=== PATIENT | female | born 1960 | race Caucasian/White ===

== ENCOUNTER 2017-12-05 16:52 | Emergency (ER) | payer OTHER ==
[~2017-12-05] VITALS: Ht 157.5 cm; Wt 114.0 kg
[~2017-12-05 16:52] MED LIST: (None)20 M1 PO; ALBU90OI INH; AMIT25 PO; CYCL10 PO; DIVA250ER PO; DOXY100 PO; FOLI1 PO; GABA100; GABA300 PO; HYDACE5 PO; HYDCOR1TC TOP; IBUP400 PO; LEVCAR100L PO; LORA.5; METO50 PO; NAPR500 PO; PANT20 PO; PRED20 PO; PROCODE120 PO; QUET25; QUET25 PO; Seroquel Xr300 MG PO; TRAACE PO; TRAM50 PO; Ultram50 MG PO
[2017-12-05] MEDS ORDERED: Prednisone20 MG PO (18:29)
[2017-12-05] MEDS ORDERED: DICL75ER PO (18:29)
[2017-12-05] MEDS ORDERED: Vibramycin100 MG PO (18:29)
[2017-12-05] MEDS ORDERED: ALBU90OI INH (18:29)
== END 2017-12-05 18:36 | disposition home or self-care (01) ==
LOC: ER 16:52
DX: J44.1 Chronic obstructive pulmonary disease with (acute) exacerbation (principal); T85.698A Other mechanical complication of other specified internal prosthetic devices, implants and grafts, initial encounter; Z79.899 Other long term (current) drug therapy; F17.210 Nicotine dependence, cigarettes, uncomplicated
CPT/HCPCS: 71046; 73522; 73562-LT; 73562-RT; 96372; 99284; J1885; J3301

== ENCOUNTER 2018-08-22 03:13 | Emergency (ER) | payer OTHER ==
[~2018-08-22] VITALS: Ht 157.5 cm; Wt 124.3 kg
[~2018-08-22 03:13] MED LIST changes: +DICL75ER PO; +Prednisone20 MG PO; +Vibramycin100 MG PO; +Zofran Odt4 MG SL
[2018-08-22] MEDS ORDERED: PROZAC20 MG PO (03:25)
[2018-08-22] MEDS ORDERED: MELO7.5 PO (03:26)
[2018-08-22 03:38] LABS: BASOPHILS ABSOLUTE AUTO 0.04 K/mm3 (0.00-0.23); BASOPHILS PERCENT AUTO 0 % (0-2); EOSINOPHILS ABSOLUTE AUTO 0.27 K/mm3 (0.00-0.68); EOSINOPHILS PERCENT AUTO 2 % (0-6); Hematocrit 38.5 % (33.0-51.0); Hemoglobin 12.7 g/dL (11.5-16.0); IMMATURE GRAN ABSOLUTE AUTO 0.06 K/mm3 (0.00-0.10); IMMATURE GRAN PERCENT AUTO 1 % (0-1); LYMPHOCYTES ABSOLUTE AUTO 4.56 K/mm3 (0.84-5.20); LYMPHOCYTES PERCENT AUTO 40 % (21-46); MONOCYTES ABSOLUTE AUTO 0.56 K/mm3 (0.16-1.47); MONOCYTES PERCENT AUTO 5 % (4-13); Mean Corpuscular HGB 33.1 pg (26.0-34.0); Mean Corpuscular Volume 100 fL (80-100); Mean Platelet Volume 8.7 fL (9.1-12.4); NEUTROPHILS ABSOLUTE AUTO 6.06 K/mm3 (1.96-9.15); NEUTROPHILS PERCENT AUTO 53 % (41-73); Platelet Count 269 K/mm3 (150-400); RDW Coefficient Variation 14.1 % (11.7-14.2); RDW Standard Deviation 52.1 fL (35.1-46.3); Red Blood Cell Count 3.84 M/mm3 (3.80-5.20); White Blood Cell Count 11.55 K/mm3 (4.00-11.30)
[2018-08-22 03:56] LABS: Alanine Aminotransfer (ALT/SGP 13 U/L (12-78); Albumin, Blood 3.1 g/dL (3.4-5.0); Albumin/Globulin Ratio 0.8 (0.8-1.8); Alk Phos 78 U/L (50-136); Anion Gap 8 mmol/L (6-16); Aspartate Aminotrans (AST/SGOT 27 U/L (12-37); Bilirubin, Total 0.2 mg/dL (0.1-1.0); Blood Urea Nitrogen 13 mg/dL (8-24); Bun/Creatinine Ratio 21.8 (12.0-20.0); CO2, Blood 30 mmol/L (21-32); Chloride, Blood 92 mmol/L (98-108); Globulin, Blood 3.9 g/dL (2.2-4.0); Glomerular Filtration Rate >60 (60-); Glucose, Blood 123 mg/dL (70-99); Potassium, Blood 4.4 mmol/L (3.5-5.5); Sodium, Blood 130 mmol/L (136-145)
== END 2018-08-22 04:55 | disposition home or self-care (01) ==
LOC: ER 03:13
PROVIDERS: Emergency Medicine
DX: R10.9 Unspecified abdominal pain (principal); F17.210 Nicotine dependence, cigarettes, uncomplicated
CPT/HCPCS: 36415; 80053; 83690; 85025; 96361; 96374; 99284-25; J1885; J7030

== ENCOUNTER 2019-11-20 15:34 | Inpatient (IN) | payer OTHER ==
[~2019-11-20] VITALS: Ht 157.5 cm; Wt 114.2 kg
[~2019-11-20 15:34] MED LIST changes: -DIVA250ER PO; -FOLI1 PO; -METO50 PO; -PANT20 PO; -QUET25 PO
[2019-11-20 16:07] LABS: BASOPHILS ABSOLUTE AUTO 0.05 K/mm3 (0.00-0.23); BASOPHILS PERCENT AUTO 0 % (0-2); EOSINOPHILS ABSOLUTE AUTO 0.16 K/mm3 (0.00-0.68); EOSINOPHILS PERCENT AUTO 1 % (0-6); Hematocrit 41.8 % (33.0-51.0); Hemoglobin 13.7 g/dL (11.5-16.0); IMMATURE GRAN ABSOLUTE AUTO 0.07 K/mm3 (0.00-0.10); IMMATURE GRAN PERCENT AUTO 1 % (0-1); LYMPHOCYTES ABSOLUTE AUTO 3.14 K/mm3 (0.84-5.20); LYMPHOCYTES PERCENT AUTO 23 % (21-46); MONOCYTES PERCENT AUTO 5 % (4-13); Mean Corpuscular HGB 32.2 pg (26.0-34.0); Mean Corpuscular HGB Conc 32.8 g/dL (31.5-36.5); Mean Corpuscular Volume 98 fL (80-100); Mean Platelet Volume 8.6 fL (9.1-12.4); NEUTROPHILS ABSOLUTE AUTO 9.51 K/mm3 (1.96-9.15); NEUTROPHILS PERCENT AUTO 70 % (41-73); Platelet Count 324 K/mm3 (150-400); RDW Coefficient Variation 13.2 % (11.7-14.2); RDW Standard Deviation 47.5 fL (35.1-46.3); Red Blood Cell Count 4.26 M/mm3 (3.80-5.20); White Blood Cell Count 13.63 K/mm3 (4.00-11.30)
[2019-11-20 16:22] LABS: Alanine Aminotransfer (ALT/SGP 18 U/L (12-78); Albumin, Blood 3.7 g/dL (3.4-5.0); Albumin/Globulin Ratio 0.9 (0.8-1.8); Alk Phos 77 U/L (50-136); Anion Gap 4 mmol/L (6-16); Aspartate Aminotrans (AST/SGOT 18 U/L (12-37); Bilirubin, Total 0.3 mg/dL (0.1-1.0); Blood Urea Nitrogen 10 mg/dL (8-24); Bun/Creatinine Ratio 17.9 (12.0-20.0); CO2, Blood 31 mmol/L (21-32); Calcium, Blood 9.1 mg/dL (8.5-10.1); Chloride, Blood 95 mmol/L (98-108); Creatinine, Blood 0.56 mg/dL (0.40-1.00); Globulin, Blood 4.2 g/dL (2.2-4.0); Glomerular Filtration Rate >60 (60-); Glucose, Blood 112 mg/dL (70-99); Potassium, Blood 4.4 mmol/L (3.5-5.5); Sodium, Blood 130 mmol/L (136-145); Total Protein, Blood 7.9 g/dL (6.4-8.2)
[2019-11-20] MEDS ORDERED: FOLI1 PO (19:06)
[2019-11-20] MEDS ORDERED: Divalproex Sod250 MG PO (19:07)
[2019-11-20] MEDS ORDERED: METO50 PO (19:08)
[2019-11-20] MEDS ORDERED: AMIT50 PO (19:09)
[2019-11-20] MEDS ORDERED: PROZAC20 MG PO (19:10)
[2019-11-20] MEDS ORDERED: MELO7.5 PO (19:10)
[2019-11-20] MEDS ORDERED: PANT20 PO (19:11)
[2019-11-20] MEDS ORDERED: METF500C PO (19:12)
[2019-11-20] MEDS ORDERED: QUET25 PO (19:37)
[2019-11-21 04:44] LABS: Anion Gap 5 mmol/L (6-16); Blood Urea Nitrogen 13 mg/dL (8-24); Bun/Creatinine Ratio 24.3 (12.0-20.0); CO2, Blood 29 mmol/L (21-32); Calcium, Blood 8.1 mg/dL (8.5-10.1); Chloride, Blood 100 mmol/L (98-108); Creatinine, Blood 0.53 mg/dL (0.40-1.00); Glomerular Filtration Rate >60 (60-); Glucose, Blood 96 mg/dL (70-99); Potassium, Blood 4.1 mmol/L (3.5-5.5); Sodium, Blood 134 mmol/L (136-145)
--- NOTE | 2019-11-21 04:54 | NUR ---
SHIFT SUMMARY PT RESTING INFREQUENTLY T/O NIGHT. AAOX4/ANXIOUS AT TIMES. NPO. DISCOMFORT CONTROLLED WITH 25mcg FENTANYL X1 SINCE ADMISSION. MILD NAUSEA SINCE ADMISSION, NO EMESIS. PT UP IN ROOM, SBA. TEDs IN PLACE. ORIENTED TO ROOM + CALL LIGHT USE. IVF INFUSING. SURGICAL CONSULT CALLED. PT NOW RESTING IN BED WITH CALL LIGHT IN REACH.
--- NOTE | 2019-11-21 18:01 | NUR ---
SUMMARY PT MEDICATED X2 FOR HEADACHE AND KNEE PAIN. PT REPORTS CHRONIC KNEE PAIN. PT UP IN ROOM INDEPENDENTLY. PT MARQUEZ CLEAR LIQUIDS WITHOUT NAUSEA
[2019-11-22 05:06] LABS: BASOPHILS ABSOLUTE AUTO 0.03 K/mm3 (0.00-0.23); BASOPHILS PERCENT AUTO 0 % (0-2); EOSINOPHILS ABSOLUTE AUTO 0.26 K/mm3 (0.00-0.68); EOSINOPHILS PERCENT AUTO 3 % (0-6); Hematocrit 34.6 % (33.0-51.0); Hemoglobin 11.4 g/dL (11.5-16.0); IMMATURE GRAN ABSOLUTE AUTO 0.05 K/mm3 (0.00-0.10); IMMATURE GRAN PERCENT AUTO 1 % (0-1); LYMPHOCYTES ABSOLUTE AUTO 3.84 K/mm3 (0.84-5.20); LYMPHOCYTES PERCENT AUTO 41 % (21-46); MONOCYTES ABSOLUTE AUTO 0.68 K/mm3 (0.16-1.47); MONOCYTES PERCENT AUTO 7 % (4-13); Mean Corpuscular HGB 32.6 pg (26.0-34.0); Mean Corpuscular HGB Conc 32.9 g/dL (31.5-36.5); Mean Corpuscular Volume 99 fL (80-100); Mean Platelet Volume 8.9 fL (9.1-12.4); NEUTROPHILS ABSOLUTE AUTO 4.62 K/mm3 (1.96-9.15); NEUTROPHILS PERCENT AUTO 49 % (41-73); Platelet Count 264 K/mm3 (150-400); RDW Coefficient Variation 13.3 % (11.7-14.2); RDW Standard Deviation 48.4 fL (35.1-46.3); White Blood Cell Count 9.48 K/mm3 (4.00-11.30)
[2019-11-22 05:33] LABS: Albumin, Blood 3.1 g/dL (3.4-5.0); Anion Gap 5 mmol/L (6-16); Blood Urea Nitrogen 7 mg/dL (8-24); Bun/Creatinine Ratio 13.6 (12.0-20.0); CO2, Blood 28 mmol/L (21-32); Calcium, Blood 8.2 mg/dL (8.5-10.1); Chloride, Blood 100 mmol/L (98-108); Creatinine, Blood 0.51 mg/dL (0.40-1.00); Glomerular Filtration Rate >60 (60-); Glucose, Blood 92 mg/dL (70-99); Phosphorus, Blood 2.8 mg/dL (2.5-4.9); Potassium, Blood 3.9 mmol/L (3.5-5.5); Sodium, Blood 133 mmol/L (136-145)
--- NOTE | 2019-11-22 07:25 | NUR ---
SUMMARY PT TOLERATING AND LIKING CLR LIQ. HOPES FOR FULL LIQ-ENSURE.MED WITH SUBLIMAZE IV TONIGHT FOR PAIN NO PO PAIN MEDS AVAILABLE.VERB EFFECTIVE, BUT THIS AM OCC RANDOM STATEMENTS THROWN IN TO CONVERSATION PER PT/ R/T IV PAIN MEDS.STATES TAKES PO HYDROCONDE QID AT HOME.DAY RN AWARE PER REPORT.
--- NOTE | 2019-11-22 17:43 | NUR ---
SUMMARY: PT ADMITTED FOR SBO. NO ACUTE CHANGE. PT HAS DONE WELL, DENIES N/V AND NO PAIN AT ABD. REPORTS PAIN FROM CHRONIC INJURIES IN LEGS, MEDICATED PER EMAR. PT TOLERATING ADVANCED DIET, WILL CTM. INDEPENDENT IN ROOM. PT IS ORIENTED BUT TENDS TO MAKE RANDOM STATEMENTS AT TIMES. NO ACUTE SAFETY CONCERNS. WILL CTM AND REPORT TO VIDHI SEGURA.
--- NOTE | 2019-11-23 07:29 | NUR ---
SUMMARY PT PUT HERSELF IN SHOWER TONIGHT. PT ALSO DCD HER OWN SL SHE GOT IT WET IN SHOWER. CATH INTACT SITE CLEAR. PT WITH BM TONIGHT.EATING POPCICLES.
--- NOTE | 2019-11-23 14:29 | NUR ---
DISCHARGE: PACKET PRINTED AND PT EDUCATED. NO NEED FOR ANY MEDICATIONS TO BE FAXED. PT LEFT UNIT VIA WHEELCHAIR AT 1312 WITH THIS RN.
== END 2019-11-23 13:12 | disposition home or self-care (01) | DRG 394 ==
LOC: ER 15:34 → SURS 22:27
PROVIDERS: Family Medicine; Physician Assistant; ADMIT Hospitalist
DX: K43.0 Incisional hernia with obstruction, without gangrene (principal); E87.1 Hypo-osmolality and hyponatremia; Z68.42 Body mass index [BMI] 45.0-49.9, adult; D72.829 Elevated white blood cell count, unspecified; G89.29 Other chronic pain; E11.9 Type 2 diabetes mellitus without complications; M43.10 Spondylolisthesis, site unspecified; F17.210 Nicotine dependence, cigarettes, uncomplicated; F20.9 Schizophrenia, unspecified; I10 Essential (primary) hypertension; K21.9 Gastro-esophageal reflux disease without esophagitis; E66.01 Morbid (severe) obesity due to excess calories; Z79.84 Long term (current) use of oral hypoglycemic drugs; Z79.1 Long term (current) use of non-steroidal anti-inflammatories (NSAID); Z79.891 Long term (current) use of opiate analgesic; Z79.899 Other long term (current) drug therapy
CPT/HCPCS: 36415; 74176; 80048; 80053; 80069; 83605; 83690; 85025; 96374; 96376; 99285-25; A9270; C9113; J0360; J2405; J3010; J7030

== ENCOUNTER 2021-06-03 18:39 | Emergency (ER) | payer OTHER ==
[~2021-06-03] VITALS: Ht 157.5 cm; Wt 113.4 kg
[~2021-06-03 18:39] MED LIST changes: +AMIT50 PO; +Divalproex Sod250 MG PO; +FOLI1 PO; +MELO7.5 PO; +METF500C PO; +METO50 PO; +PANT20 PO; +PROZAC20 MG PO; +QUET25 PO
[2021-06-03 19:09] LABS: Hemoglobin 13.4 g/dL (11.5-16.0); Mean Corpuscular HGB 31.6 pg (26.0-34.0); Mean Corpuscular HGB Conc 32.7 g/dL (31.5-36.5); Mean Corpuscular Volume 97 fL (80-100); Mean Platelet Volume 8.8 fL (9.1-12.4); Platelet Count 328 K/mm3 (150-400); RDW Standard Deviation 45.8 fL (35.1-46.3); Red Blood Cell Count 4.24 M/mm3 (3.80-5.20); White Blood Cell Count 10.08 K/mm3 (4.00-11.30)
[2021-06-03 19:32] LABS: BASOPHILS PERCENT MAN 0 % (0-2); EOSINOPHILS PERCENT MAN 0 % (0-6); LYMPHOCYTES ABSOLUTE MAN 4.73 K/mm3 (0.84-5.20); LYMPHOCYTES PERCENT MAN 47 % (21-46); MONOCYTES PERCENT MAN 8 % (4-13); NEUTROPHILS ABSOLUTE MAN 4.53 K/mm3 (1.96-9.15); SEG NEUTROPHILS PERCENT MAN 45 % (41-73); TOTAL CELLS COUNTED 100
[2021-06-03 19:49] LABS: Alanine Aminotransfer (ALT/SGP 17 U/L (12-78); Albumin, Blood 3.2 g/dL (3.4-5.0); Albumin/Globulin Ratio 0.8 (0.8-1.8); Alk Phos 65 U/L (50-136); Anion Gap 0 mmol/L (6-16); Aspartate Aminotrans (AST/SGOT 12 U/L (12-37); Bilirubin, Total 0.2 mg/dL (0.1-1.0); Blood Urea Nitrogen 8 mg/dL (8-24); Bun/Creatinine Ratio 12.7 (12.0-20.0); CO2, Blood 32 mmol/L (21-32); Chloride, Blood 103 mmol/L (98-108); Creatinine, Blood 0.63 mg/dL (0.40-1.00); Glomerular Filtration Rate >60 (60-); Glucose, Blood 116 mg/dL (70-99); Potassium, Blood 4.2 mmol/L (3.5-5.5); Sodium, Blood 135 mmol/L (136-145); Total Protein, Blood 7.2 g/dL (6.4-8.2)
[2021-06-03] MEDS ORDERED: IBUP800 PO (21:51)
[2021-06-03] MEDS ORDERED: BENZ100A PO (21:51)
== END 2021-06-03 22:13 | disposition home or self-care (01) ==
LOC: ER 18:39
PROVIDERS: Emergency Medicine
DX: K43.9 Ventral hernia without obstruction or gangrene (principal); E11.9 Type 2 diabetes mellitus without complications; F17.210 Nicotine dependence, cigarettes, uncomplicated; Z79.84 Long term (current) use of oral hypoglycemic drugs
CPT/HCPCS: 36415; 71045; 74019; 80053; 85025; 99285-25

== ENCOUNTER 2022-09-22 16:18 | Emergency (ER) | payer OTHER ==
[~2022-09-22] VITALS: Ht 157.5 cm; Wt 72.6 kg
[~2022-09-22 16:18] MED LIST changes: +BENZ100A PO; +HYDR1TAB94 PO; +IBUP800 PO
[2022-09-22] MEDS ORDERED: Cleocin HCl150 MG PO (18:37)
== END 2022-09-22 18:53 | disposition home or self-care (01) ==
LOC: ER 16:18
DX: M25.551 Pain in right hip (principal); G89.29 Other chronic pain; S72.8X1 Other fracture of right femur; L73.2 Hidradenitis suppurativa; E11.9 Type 2 diabetes mellitus without complications; I10 Essential (primary) hypertension; K21.9 Gastro-esophageal reflux disease without esophagitis; F17.210 Nicotine dependence, cigarettes, uncomplicated; W19.XXXD Unspecified fall, subsequent encounter; Z79.84 Long term (current) use of oral hypoglycemic drugs; Z79.899 Other long term (current) drug therapy
CPT/HCPCS: 73552

== ENCOUNTER 2023-04-22 14:51 | Emergency (ER) | payer OTHER ==
[~2023-04-22] VITALS: Ht 157.5 cm; Wt 95.2 kg
[~2023-04-22 14:51] MED LIST changes: +Cleocin HCl150 MG PO
[2023-04-22 14:56] VITALS: BP 162/96
[2023-04-22 15:26] LABS: BASOPHILS ABSOLUTE AUTO 0.06 K/mm3 (0.00-0.23); BASOPHILS PERCENT AUTO 1 % (0-2); EOSINOPHILS ABSOLUTE AUTO 0.23 K/mm3 (0.00-0.68); EOSINOPHILS PERCENT AUTO 2 % (0-6); Hemoglobin 12.8 g/dL (11.5-16.0); IMMATURE GRAN ABSOLUTE AUTO 0.04 K/mm3 (0.00-0.10); IMMATURE GRAN PERCENT AUTO 0 % (0-1); LYMPHOCYTES PERCENT AUTO 36 % (21-46); MONOCYTES ABSOLUTE AUTO 0.74 K/mm3 (0.16-1.47); MONOCYTES PERCENT AUTO 7 % (4-13); Mean Corpuscular HGB 31.6 pg (26.0-34.0); Mean Corpuscular HGB Conc 32.8 g/dL (31.5-36.5); Mean Corpuscular Volume 96 fL (80-100); Mean Platelet Volume 8.8 fL (9.1-12.4); NEUTROPHILS ABSOLUTE AUTO 5.87 K/mm3 (1.96-9.15); NEUTROPHILS PERCENT AUTO 54 % (41-73); Platelet Count 296 K/mm3 (150-400); RDW Coefficient Variation 13.5 % (11.7-14.2); Red Blood Cell Count 4.05 M/mm3 (3.80-5.20); White Blood Cell Count 10.84 K/mm3 (4.00-11.30)
[2023-04-22 15:45] LABS: Albumin, Blood 3.6 g/dL (3.4-5.0); Albumin/Globulin Ratio 0.9 (0.8-1.8); Bilirubin, Total 0.2 mg/dL (0.1-1.0); Bun/Creatinine Ratio 16.9 (12.0-20.0); Calcium, Blood 9.5 mg/dL (8.5-10.1); Creatinine, Blood 0.59 mg/dL (0.40-1.00); Globulin, Blood 4.2 g/dL (2.2-4.0); Potassium, Blood 4.3 mmol/L (3.5-5.5); Total Protein, Blood 7.8 g/dL (6.4-8.2)
[2023-04-22 16:28] LABS: Source, Urine Clean Catch
[2023-04-22 16:31] LABS: Appearance, Urine Clear (Clear); Bilirubin, Urine Neg (Neg); Blood, Urine Neg (Neg); Glucose Qualitative, Urine Neg (Neg); Ketones, Urine Neg (Neg); Leukocyte Esterase, Urine Neg (Neg); Nitrite, Urine Neg (Neg); Protein, Urine Neg (Neg); Specific Gravity, Urine 1.015 (1.003-1.022); Urobilinogen, Urine NORM (Normal)
[2023-04-22 16:33] LABS: Color, Urine Pale Yellow (P-Yellow)
[2023-04-22] MEDS ORDERED: Prednisone20 MG PO (18:19)
== END 2023-04-22 18:45 | disposition home or self-care (01) ==
LOC: ER 14:51
PROVIDERS: Student in an Organized Health Care Education/Training Program
DX: J44.9 Chronic obstructive pulmonary disease, unspecified (principal); E11.9 Type 2 diabetes mellitus without complications; I10 Essential (primary) hypertension; K21.9 Gastro-esophageal reflux disease without esophagitis; F17.210 Nicotine dependence, cigarettes, uncomplicated; Z79.84 Long term (current) use of oral hypoglycemic drugs; Z79.899 Other long term (current) drug therapy
CPT/HCPCS: 71046; 80053; 81003; 83690; 83880; 85025; 93005; 93010; 96374; 99284-25; A9270; J2930

== ENCOUNTER 2024-06-06 09:00 | Emergency (ER) | payer OTHER ==
[~2024-06-06] VITALS: Ht 160 cm; Wt 117.9 kg
[2024-06-06] MEDS ORDERED: HYDROcodone 10-APAP 325 TAB PO ONE (09:20)
[2024-06-06] MEDS ORDERED: ALBU2.5V5 (09:28)
[2024-06-06] MEDS ORDERED: ALBU8HFA2 (09:29)
[2024-06-06] MEDS ORDERED: PROZAC40 MG PO (09:30)
[2024-06-06] MEDS ORDERED: HYDROCODONE-AC1 EAC7 PO (09:31)
[2024-06-06 12:01] VITALS: BP 178/92
== END 2024-06-06 12:03 | disposition home or self-care (01) ==
LOC: ER 09:00
DX: S70.02XA Contusion of left hip, initial encounter (principal); G89.29 Other chronic pain; K21.9 Gastro-esophageal reflux disease without esophagitis; E11.9 Type 2 diabetes mellitus without complications; I10 Essential (primary) hypertension; F17.200 Nicotine dependence, unspecified, uncomplicated; W01.0XXA Fall on same level from slipping, tripping and stumbling without subsequent striking against object, initial encounter; Z87.81 Personal history of (healed) traumatic fracture; Z79.899 Other long term (current) drug therapy; Z79.52 Long term (current) use of systemic steroids
CPT/HCPCS: 73522; 99283-25; A9270

== ENCOUNTER 2024-10-14 12:57 | Emergency (ER) | payer OTHER ==
[~2024-10-14] VITALS: Ht 157.5 cm; Wt 83.9 kg
[~2024-10-14 12:57] MED LIST changes: +ALBU2.5V5; +ALBU8HFA2; +HYDROCODONE-AC1 EAC7 PO; +PROZAC40 MG PO
[2024-10-14 13:37] VITALS: BP 122/77
== END 2024-10-14 15:29 | disposition home or self-care (01) ==
LOC: ER 12:57
DX: M25.511 Pain in right shoulder (principal); E11.9 Type 2 diabetes mellitus without complications; I10 Essential (primary) hypertension; K21.9 Gastro-esophageal reflux disease without esophagitis; F17.210 Nicotine dependence, cigarettes, uncomplicated; Z79.899 Other long term (current) drug therapy; Z79.84 Long term (current) use of oral hypoglycemic drugs
CPT/HCPCS: 73030; 99283-25

== ENCOUNTER 2025-03-02 12:15 | Emergency (ER) | payer OTHER ==
[~2025-03-02] VITALS: Ht 157.5 cm; Wt 73.9 kg
[2025-03-02 12:45] VITALS: BP 140/92
[2025-03-02] MEDS ORDERED: NS 1,000 ML IV SCH (15:20)
== END 2025-03-02 16:30 | disposition home or self-care (01) ==
LOC: ER 12:15
DX: S82.841A Displaced bimalleolar fracture of right lower leg, initial encounter for closed fracture (principal); E11.9 Type 2 diabetes mellitus without complications; I10 Essential (primary) hypertension; K21.9 Gastro-esophageal reflux disease without esophagitis; F17.210 Nicotine dependence, cigarettes, uncomplicated; W01.0XXA Fall on same level from slipping, tripping and stumbling without subsequent striking against object, initial encounter; Z79.899 Other long term (current) drug therapy; Z79.84 Long term (current) use of oral hypoglycemic drugs
CPT/HCPCS: 27810; 73600; 73610; 99283-25; J2704; J7030

== ENCOUNTER 2025-03-27 06:07 | Day surgery (SDC) | payer OTHER ==
[~2025-03-27] VITALS: Ht 160 cm; Wt 107.2 kg
[2025-03-27] MEDS ORDERED: Bupivacaine 0.5% W/EPI 1:200000 SDV 30 ML Vial ONE (06:52)
[2025-03-27] MEDS ORDERED: CeFAZolin Sodium 2,000 MG VIAL ONE (06:53)
[2025-03-27] MEDS ORDERED: Bupivacaine 0.5% HCl 5 MG/ML 30MLVIAL ONE (07:00)
[2025-03-27] MEDS ORDERED: Dexamethasone Sod Phos 10 MG/ML 1ML VIAL ONE (07:00)
--- NOTE | 2025-03-27 07:19 | NUR ---
03/27/25 0719 Kimi Casiano UNDER BILATERAL BREASTS VISUALIZED BY RN. NO OPEN AREAS SEEN.
[2025-03-27] MEDS ORDERED: Rocuronium Bromide 10 MG/ML 5ML Injection IV ONE ×2 (07:36→08:27)
[2025-03-27] MEDS ORDERED: FentaNYL Citrate 50 MCG/ML 2 ML Injection ONE (07:36)
[2025-03-27] MEDS ORDERED: Ketorolac Tromethamine 30mg Vial ONE (07:53)
[2025-03-27] MEDS ORDERED: Ondansetron HCl 2 MG / ML 2ML Vial ONE (07:53)
[2025-03-27] MEDS ORDERED: Phenylephrine HCl 100 MCG/ML-NS 10MLSYR (1MG/10ML) ONE (08:05)
[2025-03-27] MEDS ORDERED: HYDROmorphone HCl/Pf 1MG SYR ONE (08:52)
[2025-03-27] MEDS ORDERED: Sugammadex Sodium 200 MG/2ML SDV (100 MG/ML) ONE (09:39)
--- NOTE | 2025-03-27 10:22 | NUR ---
03/27/25 1022 Fátima Anaya REPORT RECEIVED FROM TYREE AND RN UPON ARRIVAL. ORAL AIRWAY IN PLACE UPON ARRIVAL. PER TYREE VERBAL ORDER, NO POST OP FINGER STICK BLOOD SUGAR
--- NOTE | 2025-03-27 11:02 | NUR ---
03/27/25 1102 Fátima Anaya ATTEMPTED TO CALL DAUGHTER, NO VOICEMAIL AVAILABLE
[2025-03-27 11:06] VITALS: BP 157/98
== END 2025-03-27 12:13 | disposition home or self-care (01) ==
LOC: ORSCSDS 06:07
PROVIDERS: Podiatrist Foot & Ankle Surgery
PROC: 0QSG04Z Reposition Right Tibia with Internal Fixation Device, Open Approach (ICD-10-PCS; principal; 2025-03-27 07:30)
PROC: 0QSJ04Z Reposition Right Fibula with Internal Fixation Device, Open Approach (ICD-10-PCS; principal; 2025-03-27 07:30)
DX: S82.841A Displaced bimalleolar fracture of right lower leg, initial encounter for closed fracture (principal); S93.431A Sprain of tibiofibular ligament of right ankle, initial encounter; M21.071 Valgus deformity, not elsewhere classified, right ankle; I10 Essential (primary) hypertension; E11.9 Type 2 diabetes mellitus without complications; F17.210 Nicotine dependence, cigarettes, uncomplicated; K21.9 Gastro-esophageal reflux disease without esophagitis; F31.9 Bipolar disorder, unspecified; Z79.84 Long term (current) use of oral hypoglycemic drugs; Z79.899 Other long term (current) drug therapy
CPT/HCPCS: 82947; A6253; C1713; C1769; C1776; C1889; J0690; J1100; J1171; J1885; J2003; J2371; J2405; J2704; J3010; J7120